=== PATIENT | male | born 1960 | race Caucasian/White ===

== ENCOUNTER 2018-04-29 08:34 | Emergency (ER) | payer MEDICARE, OTHER ==
[2018-04-29 08:42] VITALS: BP 168/82
--- NOTE | 2018-04-29 09:27 | ER Document Report ---
ED General - General Chief Complaint: Abdominal Swelling Stated Complaint: STOMACH SWELLING Time Seen by Provider: 04/29/18 08:48 - HPI Patient complains to provider of: Urostomy swelling Notes: Patient has a history of urostomy states due to prostate cancer both prostate and bladder were taken now has a urostomy. Patient states slight swelling or redness at the site. Patient does have a history of psoriasis that there is some psoriasis of the area. Patient denies any fever chills nausea vomiting diarrhea change in ostomy output. - Related Data Allergies/Adverse Reactions: Penicillins Allergy (Verified 04/29/18 08:42) Past Medical History - Social History Smoking Status: Unknown if Ever Smoked Family History: Reviewed & Not Pertinent Review of Systems - Review of Systems Constitutional: No symptoms reported EENT: No symptoms reported Cardiovascular: No symptoms reported Respiratory: No symptoms reported Gastrointestinal: No symptoms reported Genitourinary: Other - Urostomy complaint Male Genitourinary: No symptoms reported Musculoskeletal: No symptoms reported Skin: No symptoms reported Hematologic/Lymphatic: No symptoms reported Neurological/Psychological: No symptoms reported -: Yes All other systems reviewed and negative Physical Exam - Vital signs Vitals: Temp Pulse Resp BP Pulse Ox 98.3 F 108 H 18 168/82 H 95 04/29/18 08:40 04/29/18 08:40 04/29/18 08:40 04/29/18 08:40 04/29/18 08:40 Interpretation: Normal - General General appearance: Appears well, Alert - HEENT Head: Normocephalic, Atraumatic Eyes: Normal Pupils: PERRL - Respiratory Respiratory status: No respiratory distress Chest status: Nontender Breath sounds: Normal Chest palpation: Normal - Cardiovascular Rhythm: Regular Heart sounds: Normal auscultation Murmur: No - Abdominal Inspection: Normal Distension: No distension Bowel sounds: Normal Tenderness: Nontender Organomegaly: No organomegaly Notes: Urostomy in the right lower quadrant with patches of psoriasis around the bandage. There is tissue texture changes on the inferior portion of the urostomy home more likely consistent with a stoma herniation. No signs of any infection or worrisome pathology. - Back Back: Normal, Nontender - Extremities General upper extremity: Normal inspection, Nontender, Normal color, Normal ROM , Normal temperature General lower extremity: Normal inspection, Nontender, Normal color, Normal ROM , Normal temperature, Normal weight bearing. No: Marcello's sign - Neurological Neuro grossly intact: Yes Cognition: Normal Orientation: AAOx4 Lisa Coma Scale Eye Opening: Spontaneous Hamler Coma Scale Verbal: Oriented Lisa Coma Scale Motor: Obeys Commands Hamler Coma Scale Total: 15 Speech: Normal Motor strength normal: LUE, RUE, LLE, RLE Sensory: Normal - Psychological Associated symptoms: Normal affect, Normal mood - Skin Skin Temperature: Warm Skin Moisture: Dry Skin Color: Normal Course - Vital Signs Vital signs: Temp Pulse Resp BP Pulse Ox 98.3 F 108 H 18 168/82 H 95 04/29/18 08:40 04/29/18 08:40 04/29/18 08:40 04/29/18 08:40 04/29/18 08:40 Discharge - Discharge Clinical Impression: stoma evaluation, Normal abdominal exam, Psoriasis Disposition: HOME, SELF-CARE Additional Instructions: Evaluation of the stoma today does not reveal any signs of infection or other worrisome etiologies. There is a little small outbreak of psoriasis around the stoma site. There is a slight firmness to the base of the stoma site however this is more likely a hernia that is forming around the stoma. This can be normal. Would recommend he follow-up with your primary care physician at this time no need for antibiotics and the need for surgery no need for admission to the hospital. Continue activities as tolerated
== END 2018-04-29 09:30 | disposition home or self-care (01) ==
LOC: ER 08:34
DX: Z43.6 Encounter for attention to other artificial openings of urinary tract (principal); L40.9 Psoriasis, unspecified; R19.00 Intra-abdominal and pelvic swelling, mass and lump, unspecified site; Z85.51 Personal history of malignant neoplasm of bladder; Z85.46 Personal history of malignant neoplasm of prostate; Z88.0 Allergy status to penicillin
CPT/HCPCS: 99284

== ENCOUNTER 2018-05-23 08:43 | Emergency (ER) | payer MEDICARE, OTHER ==
[2018-05-23] MEDS ORDERED: ASPIRIN 81 MG TABLET, CHEWABLE PO ONE (09:07)
[2018-05-23 10:00] LABS: ABSOLUTE EOSINOPHILS # (AUTO) 0.1 10^3/uL (0.0-0.6); ABSOLUTE LYMPHOCYTES (AUTO) 0.8 10^3/uL (0.5-4.7); ABSOLUTE MONOCYTES (AUTO) 0.5 10^3/uL (0.1-1.4); ABSOLUTE NEUT (AUTO) 6.9 10^3/uL (1.7-8.2); BASOPHILS % (AUTO) 0.4 % (0-2); EOSINOPHILS % (AUTO) 0.7 % (0-6); HEMOGLOBIN 15.3 g/dL (13.5-17.0); MEAN CORPUSCULAR HEMOGLOBIN 30.5 pg (27.0-33.4); MEAN CORPUSCULAR VOLUME 90 fl (80-97); MONOCYTES % (AUTO) 5.8 % (3-13); PLATELET COUNT 171 10^3/uL (150-450); RED BLOOD COUNT 5.01 10^6/uL (4.35-5.55); RED CELL DISTRIBUTION WIDTH 14.9 % (11.5-14.0); SEGMENTED NEUTROPHILS % (AUTO) 83.1 % (42-78); TOTAL CELLS COUNTED % (AUTO) 100 %; WHITE BLOOD COUNT 8.3 10^3/uL (4.0-10.5)
--- NOTE | 2018-05-23 10:09 | RADIOLOGY REPORT (SQ) ---
EXAM DESCRIPTION: CHEST 2 VIEWS COMPLETED DATE/TIME: 05/23/2018 9:49 am REASON FOR STUDY: near syn COMPARISON: None. EXAM PARAMETERS: NUMBER OF VIEWS: two views TECHNIQUE: Digital Frontal and Lateral radiographic views of the chest acquired. RADIATION DOSE: NA LIMITATIONS: none FINDINGS: LUNGS AND PLEURA: No opacities, masses or pneumothorax. No pleural effusion. MEDIASTINUM AND HILAR STRUCTURES: No masses or contour abnormalities. HEART AND VASCULAR STRUCTURES: No cardiomegaly. Old sternotomy. BONES: No acute findings. HARDWARE: Left-sided pacemaker/defibrillator OTHER: No other significant finding. IMPRESSION: NO ACUTE RADIOGRAPHIC FINDING IN THE CHEST. TECHNICAL DOCUMENTATION: JOB ID: [id number] [employer]- All Rights Reserved Reading location - IP/workstation name: [email or web address]
[2018-05-23 10:23] LABS: ALANINE AMINOTRANSFERASE 22 U/L (21-72); ALBUMIN 4.8 g/dL (3.5-5.0); ALKALINE PHOSPHATASE 67 U/L (38-126); ANION GAP 17 (5-19); ASPARTATE AMINO TRANSFERASE 25 U/L (17-59); BILIRUBIN,DIRECT 0.3 mg/dL (0.0-0.4); BILIRUBIN,TOTAL 0.4 mg/dL (0.2-1.3); BLOOD UREA NITROGEN 20 mg/dL (7-20); CALCIUM 10.2 mg/dL (8.4-10.2); CARBON DIOXIDE 26 mmol/L (22-30); CHLORIDE 99 mmol/L (98-107); CREATINE KINASE 68 U/L (55-170); GLUCOSE 266 mg/dL (75-110); POTASSIUM 4.1 mmol/L (3.6-5.0); SODIUM 141.8 mmol/L (137-145); TOTAL PROTEIN 7.9 g/dL (6.3-8.2)
[2018-05-23 10:35] LABS: CREATINE KINASE MB 1.43 ng/mL (<4.55); TROPONIN I < 0.012 ng/mL
[2018-05-23] MEDS ORDERED: PROCHLORPERAZINE MALEATE 5 MG TABLET PO ONE (12:12)
[2018-05-23] MEDS ORDERED: KETOROLAC TROMETHAMINE INJ/PF 30 MG/1 ML SDV IV ONE (12:12)
[2018-05-23] MEDS ORDERED: ONDANSETRON 4 MG TAB.RAPDIS PO ONE (12:12)
[2018-05-23 13:01] VITALS: BP 165/78
--- NOTE | 2018-05-23 13:17 | ER Document Report ---
ED General - General Chief Complaint: Near Syncope Stated Complaint: DIZZINESS Time Seen by Provider: 05/23/18 09:04 TRAVEL OUTSIDE OF THE [place] IN LAST 30 DAYS: No - HPI Patient complains to provider of: Lightheaded dizziness Notes: Patient coming in for evaluation of lightheaded and dizziness. Patient states mostly occurs whenever he bends over. Patient states symptoms ongoing for greater than 48 hours. Patient states also has slight headache. Patient denies any history trauma denies any fevers chills nausea vomiting diarrhea. Denies any chest pain abdominal pain. Patient has a history of cirrhosis and a urostomy. Patient resting comfortably upon my evaluation states eating and drinking normally. - Related Data Allergies/Adverse Reactions: Penicillins Allergy (Verified 05/23/18 09:43) Past Medical History - Social History Smoking Status: Former Smoker Frequency of alcohol use: None Drug Abuse: None Family History: Reviewed & Not Pertinent Patient has suicidal ideation: No Patient has homicidal ideation: No - Past Medical History Cardiac Medical History: Reports: Hx Hypercholesterolemia, Hx Hypertension Pulmonary Medical History: Reports: Hx COPD Endocrine Medical History: Reports: Hx Diabetes Mellitus Type 2 Renal/ Medical History: Denies: Hx Peritoneal Dialysis Past Surgical History: Reports: Hx Cardiac Surgery - triple bypass, Hx Cholecystectomy, Hx Urinary Tract Surgery - bladder and prostate removal, urostomy Review of Systems - Review of Systems Constitutional: No symptoms reported EENT: No symptoms reported Cardiovascular: Lightheaded Respiratory: No symptoms reported Gastrointestinal: No symptoms reported Genitourinary: No symptoms reported Male Genitourinary: No symptoms reported Musculoskeletal: No symptoms reported Skin: No symptoms reported Hematologic/Lymphatic: No symptoms reported Neurological/Psychological: No symptoms reported -: Yes All other systems reviewed and negative Physical Exam - Vital signs Vitals: Temp Pulse Resp BP Pulse Ox 97.8 F 101 H 18 148/95 H 95 05/23/18 08:48 05/23/18 08:48 05/23/18 08:48 05/23/18 08:48 05/23/18 08:48 Interpretation: Normal - General General appearance: Appears well, Alert - HEENT Head: Normocephalic, Atraumatic Eyes: Normal Pupils: PERRL - Respiratory Respiratory status: No respiratory distress Chest status: Nontender Breath sounds: Normal Chest palpation: Normal - Cardiovascular Rhythm: Regular Heart sounds: Normal auscultation Murmur: No - Abdominal Inspection: Normal Distension: No distension Bowel sounds: Normal Tenderness: Nontender Organomegaly: No organomegaly Notes: Urostomy right lower quadrant - Back Back: Normal, Nontender - Extremities General upper extremity: Normal inspection, Nontender, Normal color, Normal ROM , Normal temperature General lower extremity: Normal inspection, Nontender, Normal color, Normal ROM , Normal temperature, Normal weight bearing. No: Marcello's sign - Neurological Neuro grossly intact: Yes Cognition: Normal Orientation: AAOx4 Humble Coma Scale Eye Opening: Spontaneous Humble Coma Scale Verbal: Oriented Humble Coma Scale Motor: Obeys Commands Lisa Coma Scale Total: 15 Speech: Normal Motor strength normal: LUE, RUE, LLE, RLE Sensory: Normal - Psychological Associated symptoms: Normal affect, Normal mood - Skin Skin Temperature: Warm Skin Moisture: Dry Skin Color: Normal Notes: Patches of psoriasis throughout the torso Course - Re-evaluation Re-evalutation: 05/23/18 15:15 Orthostatics slightly positive for reproduction of the symptoms. Patient otherwise has no acute abnormalities on his laboratory findings of his be suggestive of significant pathology causing his lightheadedness or dizziness. Extremities skin intact moving all 4 extremities. The recommended patient try compression stockings as they is slightly orthostatic increase his oral intake and follow-up with his primary care physician. Patient's headache is nondescript slightly improved with Compazine Zofran. Will send patient home with Compazine and Zofran. 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 The patient is neurologically intact. Given the extremely low risk of these diagnoses further testing and evaluation for these possibilities does not appear to be indicated at this time. The patient has been instructed to return if the symptoms worsen or change in any way.. - Vital Signs Vital signs: Temp Pulse Resp BP Pulse Ox 97.8 F 73 22 H 165/78 H 96 05/23/18 08:48 05/23/18 10:07 05/23/18 12:25 05/23/18 12:25 05/23/18 12:25 - Laboratory Result Diagrams: 05/23/18 09:32 05/23/18 09:32 Laboratory results interpreted by me: 05/23/18 05/23/18 09:32 09:32 RDW 14.9 H Seg Neutrophils % 83.1 H Lymphocytes % 10.0 L Glucose 266 H Discharge - Discharge Clinical Impression: Light-headed feeling Headache Qualifiers: Headache type: unspecified Headache chronicity pattern: unspecified pattern Intractability: not intractable Qualified Code(s): R51 - Headache Condition: Good Disposition: HOME, SELF-CARE Instructions: Dehydration ([facility]), Near Syncopal Episode ([facility]), Orthostatic Hypotension ([facility]) Additional Instructions: Does not show any signs of electrolyte abnormality cardiac ischemia cardiac damage infection requiring antibiotics is no surgical pathology for your symptoms today. I do believe your lightheadedness more likely due to decreased blood flow to the heart would recommend trying the compression stockings that we gave you here in the ER. Also recommend for your headaches take Tylenol and Motrin 600 mg of Motrin along with 650 mg of Tylenol for headache. He may also try the Compazine Zofran combination for your headache return to ER symptoms worsen. Prescriptions: Compression Socks, Medium [Futuro Restoring] 1 each MC DAILY #1 each Ondansetron HCl [Zofran 4 mg Tablet] 1 - 2 tab PO Q6 #30 tablet Prochlorperazine Maleate [Compazine] 5 mg PO Q6 #30 tablet Forms: Return to Work
--- NOTE | 2018-05-23 22:01 | EKG REPORT ---
SEVERITY:- ABNORMAL ECG - SINUS RHYTHM PROBABLE INFERIOR INFARCT, AGE INDETERMINATE LATERAL LEADS ARE ALSO INVOLVED : Confirmed by: Russell Morel 23-May-2018 22:00:58
== END 2018-05-23 13:14 | disposition home or self-care (01) ==
LOC: ER 08:43
DX: R42 Dizziness and giddiness (principal); R51 Headache; L40.9 Psoriasis, unspecified; I10 Essential (primary) hypertension; J44.9 Chronic obstructive pulmonary disease, unspecified; E11.9 Type 2 diabetes mellitus without complications; Z87.891 Personal history of nicotine dependence; Z88.0 Allergy status to penicillin; Z95.1 Presence of aortocoronary bypass graft
CPT/HCPCS: 93005; 99284; 96374; 36415; 82553; 82550; 85025; 80053; 84484; 71046; 93010; A9270 ×3; J1885; S0119; S0183

== ENCOUNTER 2018-06-07 14:35 | Observation (INO) | payer MEDICARE, OTHER ==
--- NOTE | 2018-06-07 15:12 | ER Document Report ---
ED General - General Chief Complaint: Syncope Stated Complaint: POSSIBLE SYNCOPE Time Seen by Provider: 06/07/18 14:50 Mode of Arrival: Medic Information source: Patient Notes: This is a 58-year-old man brought in by EMS after a witnessed on her altered syncopal event at home while he was in the kitchen. Patient denies any head injury or pain. He does not remember the event. The patient's son was at the scene and patient's stated that the loss of consciousness was approximately 10-15 seconds. She does have a history of bladder cancer (status post bladder resection/prostatectomy with ostomy) status post last chemo March 2017 (in [place]). States he was given a clean bill of [place] and March 2017 right before he relocated down here. He does have a history of coronary artery disease with a CABG in 2014 and does have a defibrillator. He also has non- insulin-requiring diabetes. Currently he denies any pain. Review of systems is positive for frequent dizziness, headache and nausea with retching on and off for the past month. Review of systems: Patient denies exertional chest pain. She denies any blood in the stool or black stools. TRAVEL OUTSIDE OF THE [place] IN LAST 30 DAYS: No - HPI Onset: Just prior to arrival Onset/Duration: Sudden Quality of pain: No pain Severity: None Pain Level: Denies Associated symptoms: Nausea - Dizziness, Weakness, Other Exacerbated by: Denies Relieved by: Denies Similar symptoms previously: Yes Recently seen / treated by doctor: Yes - Related Data Allergies/Adverse Reactions: Penicillins Allergy (Verified 06/07/18 15:02) Past Medical History - General Information source: Patient - Social History Smoking Status: Former Smoker Cigarette use (# per day): No Chew tobacco use (# tins/day): No Frequency of alcohol use: None Drug Abuse: None Lives with: Family Family History: Reviewed & Not Pertinent Patient has suicidal ideation: No Patient has homicidal ideation: No - Past Medical History Cardiac Medical History: Reports: Hx Hypercholesterolemia, Hx Hypertension Pulmonary Medical History: Reports: Hx COPD Endocrine Medical History: Reports: Hx Diabetes Mellitus Type 2 Renal/ Medical History: Denies: Hx Peritoneal Dialysis Past Surgical History: Reports: Hx Cardiac Surgery - triple bypass, Hx Cholecystectomy, Hx Urinary Tract Surgery - bladder and prostate removal, urostomy Review of Systems - Review of Systems Constitutional: denies: Chills, Fever EENT: No symptoms reported Cardiovascular: See HPI Respiratory: denies: Cough, Hemoptysis, Short of breath Gastrointestinal: Nausea. denies: Vomiting Genitourinary: No symptoms reported Male Genitourinary: No symptoms reported Musculoskeletal: No symptoms reported Skin: No symptoms reported Hematologic/Lymphatic: No symptoms reported Neurological/Psychological: Weakness. denies: Loss of power Physical Exam - Vital signs Vitals: Temp Pulse Resp BP Pulse Ox 97.8 F 75 18 151/90 H 99 06/07/18 14:35 06/07/18 14:35 06/07/18 14:35 06/07/18 14:35 06/07/18 14:35 Notes: Physical exam: GENERAL: [id number] man, alert and oriented 3, answering questions appropriately. HEAD: Atraumatic, normocephalic. EYES: Pupils equal round and reactive to light, extraocular movements intact, sclera anicteric, conjunctiva are normal. ENT: TMs normal, nares patent, oropharynx clear without exudates. Moist mucous membranes. NECK: Normal range of motion, supple without obvious mass or JVD. LUNGS: Breath sounds clear to auscultation bilaterally and equal. No wheezes rales or rhonchi. HEART: Regular rate and rhythm without murmurs, rubs or gallops. ABDOMEN: Soft, normoactive bowel sounds. No tenderness to palpation. No guarding, no rebound. Ostomy. EXTREMITIES: Normal range of motion, no pitting or edema. No clubbing or cyanosis. NEUROLOGICAL: Cranial nerves II through XII grossly intact. Normal speech, moving all extremities. PSYCH: Normal mood, normal affect. SKIN: Warm, Dry, normal turgor, no rashes or lesions noted. Course - Re-evaluation Re-evalutation: 06/07/18 17:22 Defibrillator was interrogated: No evidence of V. fib/V. tach - Vital Signs Vital signs: Temp Pulse Resp BP Pulse Ox 97.8 F 75 18 153/89 H 100 06/07/18 14:35 06/07/18 14:35 06/07/18 17:00 06/07/18 15:01 06/07/18 17:00 - Laboratory Result Diagrams: 06/07/18 14:50 06/07/18 14:50 Laboratory results interpreted by me: 06/07/18 06/07/18 14:50 14:50 RDW 15.1 H BUN 26 H Glucose 111 H - Diagnostic Test Radiology reviewed: Image reviewed, Reports reviewed - CT of the head shows no acute bleed or obvious infarct. X-ray shows no infiltrates. - EKG Interpretation by Me Rate: Normal Rhythm: NSR - EKG shows normal sinus rhythm with a ventricular rate of 75, no acute ST-T wave changes Discharge - Discharge Clinical Impression: Syncope Condition: Stable Disposition: ADMITTED OBSERVATION Admitting Provider: Hospitalist Tyler Lagunas Unit Admitted: Telemetry
[2018-06-07] MEDS ORDERED: ONDANSETRON HCL INJ/PF 4 MG/2 ML SDV IV ONE (15:35)
[2018-06-07 15:50] LABS: ABSOLUTE EOSINOPHILS # (AUTO) 0.1 10^3/uL (0.0-0.6); ABSOLUTE LYMPHOCYTES (AUTO) 1.4 10^3/uL (0.5-4.7); ABSOLUTE MONOCYTES (AUTO) 0.8 10^3/uL (0.1-1.4); ABSOLUTE NEUT (AUTO) 5.9 10^3/uL (1.7-8.2); BASOPHILS % (AUTO) 0.4 % (0-2); EOSINOPHILS % (AUTO) 1.4 % (0-6); HEMATOCRIT 42.5 % (37.9-51.0); HEMOGLOBIN 14.4 g/dL (13.5-17.0); LYMPHOCYTES % (AUTO) 16.9 % (13-45); MEAN CORPUSCULAR HEMOGLOBIN 30.5 pg (27.0-33.4); MEAN CORPUSCULAR VOLUME 90 fl (80-97); PLATELET COUNT 183 10^3/uL (150-450); RED BLOOD COUNT 4.73 10^6/uL (4.35-5.55); RED CELL DISTRIBUTION WIDTH 15.1 % (11.5-14.0); SEGMENTED NEUTROPHILS % (AUTO) 71.3 % (42-78); TOTAL CELLS COUNTED % (AUTO) 100 %; WHITE BLOOD COUNT 8.3 10^3/uL (4.0-10.5)
[2018-06-07 16:02] LABS: ALANINE AMINOTRANSFERASE 23 U/L (21-72); ALBUMIN 4.2 g/dL (3.5-5.0); ALKALINE PHOSPHATASE 71 U/L (38-126); ANION GAP 17 (5-19); ASPARTATE AMINO TRANSFERASE 29 U/L (17-59); BILIRUBIN,DIRECT 0.3 mg/dL (0.0-0.4); BILIRUBIN,TOTAL 0.4 mg/dL (0.2-1.3); BLOOD UREA NITROGEN 26 mg/dL (7-20); CALCIUM 10.2 mg/dL (8.4-10.2); CARBON DIOXIDE 22 mmol/L (22-30); CHLORIDE 99 mmol/L (98-107); CREATINE KINASE 148 U/L (55-170); GLUCOSE 111 mg/dL (75-110); POTASSIUM 4.4 mmol/L (3.6-5.0); SODIUM 137.7 mmol/L (137-145); TOTAL PROTEIN 7.3 g/dL (6.3-8.2)
--- NOTE | 2018-06-07 16:02 | RADIOLOGY REPORT (SQ) ---
EXAM DESCRIPTION: CT HEAD WITHOUT COMPLETED DATE/TIME: 06/07/2018 3:27 pm REASON FOR STUDY: mujica, syncope, h/o bladder cancer COMPARISON: None. TECHNIQUE: Axial images acquired through the brain without intravenous contrast. Images reviewed wi th bone, brain and subdural windows. Images stored on PACS. All CT scanners at this facility use dose modulation, iterative reconstruction, and/or weight based d osing when appropriate to reduce radiation dose to as low as reasonably achievable (ALARA). [facility]: Dose Right [facility]: CareDose [facility]: Dose Right [facility]: Teradose 4D [facility]: Smart Conferize RADIATION DOSE: CT Rad equipment meets quality standard of care and radiation dose reduction techniq ues were employed. CTDIvol: 53.2 mGy. DLP: 1044 mGy-cm. mGy. LIMITATIONS: None. FINDINGS: VENTRICLES: Normal size and contour. CEREBRUM: No hemorrhage. No midline shift. No evidence for acute infarction. Minimal chronic white matter change. . CEREBELLUM: No masses. No hemorrhage. No alteration of density. No evidence for acute infarction. EXTRAAXIAL SPACES: No fluid collections. No masses. ORBITS AND GLOBE: No intra- or extraconal masses. Normal contour of globe without masses. CALVARIUM: No fracture. PARANASAL SINUSES: No fluid or mucosal thickening. Nasal septal deviation to the right. SOFT TISSUES: No mass or hematoma. OTHER: No other significant finding. IMPRESSION: Minimal chronic white matter change. Otherwise, noncontrast CT head. EVIDENCE OF ACUTE STROKE: NO. COMMENT: Quality ID # [id number]: Final reports with documentation of one or more dose reduction techniques (e.g., Automated exposure control, adjustment of the mA and/or kV according to patient size, use of iterative reconstruction technique) TECHNICAL DOCUMENTATION: JOB ID: [id number]- All Rights Reserved Reading location - IP/workstation name: [email or web address]
--- NOTE | 2018-06-07 16:05 | RADIOLOGY REPORT (SQ) ---
EXAM DESCRIPTION: CHEST SINGLE VIEW COMPLETED DATE/TIME: 06/07/2018 3:38 pm REASON FOR STUDY: syncope COMPARISON: 05/23/2018. EXAM PARAMETERS: NUMBER OF VIEWS: One view. TECHNIQUE: Single frontal radiographic view of the chest acquired. RADIATION DOSE: NA LIMITATIONS: None. FINDINGS: LUNGS AND PLEURA: No acute infiltrates or effusions. MEDIASTINUM AND HILAR STRUCTURES: No masses. Contour normal. HEART AND VASCULAR STRUCTURES: Heart normal in size. Normal vasculature. BONES: No acute findings. HARDWARE: Pacer defibrillator in place there OTHER: Median sternotomy wires and marker clips from previous CABG. IMPRESSION: NO SIGNIFICANT INTERVAL CHANGE. TECHNICAL DOCUMENTATION: JOB ID: [id number] [employer]- All Rights Reserved Reading location - IP/workstation name: [email or web address]
[2018-06-07 16:14] LABS: CREATINE KINASE MB 3.04 ng/mL (<4.55)
[2018-06-07 16:15] LABS: TROPONIN I < 0.012 ng/mL
[2018-06-07] MEDS: NORMAL SALINE 1000 ML 1,000 ML IV PRN ×4 (16:40→23:26)
[2018-06-07] MEDS ORDERED: ACETAMINOPHEN 325 MG TABLET PO PRN (17:32)
[2018-06-07] MEDS ORDERED: ONDANSETRON HCL INJ/PF 4 MG/2 ML SDV IV PRN (17:32)
[2018-06-07] MEDS ORDERED: IPRATROPIUM/ALBUTEROL 0.5-2.5 MG/3 ML AMPUL NEB PRN (18:07)
[2018-06-07] MEDS ORDERED: INSULIN LISPRO 100 UNIT/ML 3 ML VIAL SUBCUT PRN (18:10)
[2018-06-07] MEDS ORDERED: DEXTROSE 40% GEL 15 GM TUBE PO PRN ×2 (18:10)
[2018-06-07] MEDS ORDERED: GLUCAGON,HUMAN RECOMB 1 MG INJ IM PRN (18:10)
[2018-06-07] MEDS ORDERED: DEXTROSE 50%-WATER 25 GM/50 ML DISP.SYRIN IV PRN ×2 (18:10)
--- NOTE | 2018-06-07 18:15 | PDOC H&P ---
History of Present Illness Admission Date/PCP: 06/07/18 17:00 no PCP Patient complains of: syncope History of Present Illness: ISAIAH CARDONA is a 58 year old male with a past medical history of hypertension, coronary artery disease status post bypass 3 with implanted defibrillator, hyperlipidemia, bladder cancer status post removal with urostomy bag, GERD and COPD, who presented to the ED complaining of a syncope around 1 PM this afternoon. Patient states that he has been feeling dizziness for about a month now and this afternoon he was in the kitchen making some food when he felt a little lightheaded and then he collapsed onto the floor. Patient stated his son was in the house and heard him fall and came running and found him on the floor. He had head a small table in the kitchen and collapsed on the floor. He currently has no pain except for left arm he has a bruising near the tricep. Patient states that he did not lose control of his bowels. He has a urostomy bag so he cannot tell me about losing control of his urine. His son did not mention anything about shaking of the arms or legs such as a seizure. His son unfortunately not at bedside. His is. He tells me that he came right back to consciousness and feels himself right now. He does admit to feeling nausea/vomiting for over a month. States he has been eating well and has lost more than 20 pounds in the last 6-8 weeks. tells me that he has been having some tremors of his hands bilaterally mostly with intention. States that he has gone to the doctor the #29. Of note he was at urgent care on 06/05 because he was not feeling so well and having nausea vomiting and headache-he tested his urine and thought it was infected so they started him on Levaquin. Today he had his third dose of Levaquin. Unfortunately due to his urostomy but he is unable to tell me any symptoms of urinary infection such as dysuria or urgency/frequency. Patient tell me that he has been to the ER in the last month and a half complaining of similar symptoms and did not find anything wrong with him. He tells me that his defibrillator was implanted due to history of A. fib in the past. He denies any recent travel outside the country, changes in diet except as mentioned above, and no new changes in medications except the Levaquin that was started 3 days ago. Past Medical History Cardiac Medical History: Reports: Hyperlipidema, Hypertension Pulmonary Medical History: Reports: Chronic Obstructive Pulmonary Disease (COPD) Endocrine Medical History: Reports: Diabetes Mellitus Type 2 Past Surgical History Past Surgical History: Reports: Cholecystectomy Social History Lives with: Family Smoking Status: Former Smoker Family History Family History: Reviewed & Not Pertinent Parental Family History Reviewed: Yes Children Family History Reviewed: Unknown Sibling(s) Family History Reviewed.: Unknown Medication/Allergy Home Medications: Compression Socks, Medium [Futuro Restoring] 1 each MC DAILY #1 each 05/23/18 Ondansetron HCl [Zofran 4 mg Tablet] 1 - 2 tab PO Q6 #30 tablet 05/23/18 Prochlorperazine Maleate [Compazine] 5 mg PO Q6 #30 tablet 05/23/18 Allergies/Adverse Reactions: Penicillins Allergy (Verified 06/07/18 15:02) Review of Systems All systems: reviewed and no additional remarkable complaints except as stated Constitutional: PRESENT: weight loss. ABSENT: chills, fever(s) Eyes: ABSENT: visual disturbances Cardiovascular: ABSENT: chest pain, dyspnea on exertion, edema Respiratory: ABSENT: cough Gastrointestinal: PRESENT: heartburn, nausea, vomiting. ABSENT: abdominal pain , coffee ground emesis, diarrhea Neurological: PRESENT: dizziness, syncope, tremor(s) - Bilateral hands. ABSENT : abnormal gait, abnormal speech, confusion, frequent falls - This is the first time he fell, numbness, weakness Hematologic/Lymphatic: ABSENT: easy bruising, lymphadenopathy Physical Exam Vital Signs: Temp Pulse Resp BP Pulse Ox 97.8 F 75 18 153/89 H 100 06/07/18 14:35 06/07/18 14:35 06/07/18 17:00 06/07/18 15:01 06/07/18 17:00 General appearance: PRESENT: no acute distress, obese Head exam: PRESENT: atraumatic, normocephalic Eye exam: PRESENT: EOMI, PERRLA. ABSENT: scleral icterus Ear exam: PRESENT: normal external ear exam Mouth exam: PRESENT: moist, neck supple Neck exam: ABSENT: tracheal deviation Respiratory exam: PRESENT: clear to auscultation lashell, decreased breath sounds - Slightly decreased breath sounds bilaterally at the bases with no expiratory wheezes appreciated, symmetrical. ABSENT: wheezes Cardiovascular exam: PRESENT: +S1, +S2, other - Left chest wall defibrillator noted Pulses: PRESENT: +2 pedal pulses bilateral Vascular exam: PRESENT: normal capillary refill GI/Abdominal exam: PRESENT: normal bowel sounds, soft, other - Urostomy bag with urine noted. ABSENT: tenderness Extremities exam: ABSENT: +2 edema Neurological exam: PRESENT: alert - CN 2-12 intact except a ?slight droop of the left side of the mouth, awake, oriented to person, oriented to place, oriented to time, oriented to situation, reflexes normal, motor sensory deficit , other - finger to nose - some tremors but able to perform, Heel to leija normal Skin exam: PRESENT: other - psoriaris noted on arms and legs Results Laboratory Results: Personally reviewed lab results EKG Comments: Personally reviewed EKG Impressions: Head CT 06/07/18 15:07 IMPRESSION: Minimal chronic white matter change. Otherwise, noncontrast CT head. EVIDENCE OF ACUTE STROKE: NO. Chest X-Ray 06/07/18 15:08 IMPRESSION: NO SIGNIFICANT INTERVAL CHANGE. Status: Image reviewed by me - Personally reviewed imaging of chest x-ray Assessment & Plan - Diagnosis (1) Syncope and collapse Is this a current diagnosis for this admission?: Yes Plan: Unclear as to the cause of his syncope. Vasovagal versus orthostatic hypotension versus TIA versus stroke versus cardiac in origin. ED had consulted his defibrillator company and they had sent a report showing that there were no changes in his rhythm which would cause his syncope. We will work him up for syncope/TIA. We will start him on some IV fluids -Ordered echo, carotid duplex, lipid panel, A1c, PT/OT, troponins 3, speech/ swallow therapy, bedside swallow eval., neurochecks, frequent vital signs, fall precautions -Unfortunately our MRI will not do his exam due to implanted defibrillator. (2) Hypertension Qualifiers: Hypertension type: essential hypertension Qualified Code(s): I10 - Essential (primary) hypertension Is this a current diagnosis for this admission?: Yes Plan: Stable, will continue with home medications. (3) GERD (gastroesophageal reflux disease) Qualifiers: Esophagitis presence: without esophagitis Qualified Code(s): K21.9 - Gastro -esophageal reflux disease without esophagitis Is this a current diagnosis for this admission?: Yes Plan: Stable, continue his home medications. (4) History of bladder cancer Is this a current diagnosis for this admission?: Yes Plan: Has urostomy bag. Continue current care. (5) Dizziness Is this a current diagnosis for this admission?: Yes (6) Nausea and vomiting Qualifiers: Vomiting Intractability: non-intractable Is this a current diagnosis for this admission?: Yes Plan: Nausea and vomiting. Unclear etiology. States he has been having it for more than 6 weeks now. Zofran as needed. He needs to follow-up with his primary care doctor and may be a GI referral for further evaluation. (7) Diabetes mellitus type 2 in obese Is this a current diagnosis for this admission?: Yes Plan: States his most recent A1c was less than 7. Currently only on metformin. Likely will hold metformin and continue with Accu-Cheks and sliding scale insulin. (8) COPD (chronic obstructive pulmonary disease) Qualifiers: Chronic bronchitis type: simple Is this a current diagnosis for this admission?: Yes Plan: not on any meds at home. will order duoneb prn - Time Time Spent: 50 to 70 Minutes Anticipated discharge: Home Within: within 48 hours - Inpatient Certification Medical Necessity: Need For Continuous Telemetry Monitoring, Need for Neurological Checks, Other - Syncope
[2018-06-07] MEDS: FAMOTIDINE 20 MG TABLET PO SCH (22:17)
[2018-06-07] MEDS: HEPARIN SOD (PORCINE) 5,000 UNIT/ML 1 ML SYRINGE SUBCUT SCH (22:17)
[2018-06-08] MEDS: HEPARIN SOD (PORCINE) 5,000 UNIT/ML 1 ML SYRINGE SUBCUT SCH ×2 (05:40→14:53)
[2018-06-08 06:01] LABS: HEMATOCRIT 41.1 % (37.9-51.0); HEMOGLOBIN 14.1 g/dL (13.5-17.0); MEAN CORPUSCULAR HEMOGLOBIN 30.5 pg (27.0-33.4); MEAN CORPUSCULAR HGB CONC 34.2 g/dL (32.0-36.0); MEAN CORPUSCULAR VOLUME 89 fl (80-97); PLATELET COUNT 165 10^3/uL (150-450); RED BLOOD COUNT 4.61 10^6/uL (4.35-5.55); RED CELL DISTRIBUTION WIDTH 14.8 % (11.5-14.0); WHITE BLOOD COUNT 8.1 10^3/uL (4.0-10.5)
[2018-06-08 06:30] LABS: ANION GAP 12 (5-19); BLOOD UREA NITROGEN 20 mg/dL (7-20); CALCIUM 9.8 mg/dL (8.4-10.2); CARBON DIOXIDE 24 mmol/L (22-30); CHLORIDE 100 mmol/L (98-107); GLUCOSE 103 mg/dL (75-110); POTASSIUM 3.9 mmol/L (3.6-5.0); SODIUM 136.4 mmol/L (137-145); TRIGLYCERIDES 214 mg/dL (<150)
[2018-06-08 06:37] LABS: VLDL CHOLESTEROL 42.8 mg/dL (10-31)
[2018-06-08 06:40] LABS: DIRECT LDL 85 mg/dL (<100)
[2018-06-08] MEDS: FAMOTIDINE 20 MG TABLET PO SCH (09:47)
--- NOTE | 2018-06-08 09:51 | EKG REPORT ---
SEVERITY:- OTHERWISE NORMAL ECG - SINUS RHYTHM VENTRICULAR PREMATURE COMPLEX : Confirmed by: Russell Morel 08-Jun-2018 09:51:00
--- NOTE | 2018-06-08 09:51 | EKG REPORT ---
SEVERITY:- ABNORMAL ECG - SINUS RHYTHM PROBABLE LEFT VENTRICULAR HYPERTROPHY PROBABLE INFERIOR INFARCT, AGE INDETERMINATE : Confirmed by: Russell Morel 08-Jun-2018 09:51:13
--- NOTE | 2018-06-08 13:48 | RADIOLOGY REPORT (SQ) ---
EXAM DESCRIPTION: CAROTID DOPPLER COMPLETED DATE/TIME: 06/08/2018 1:12 pm REASON FOR STUDY: syncope/TIA R55 SYNCOPE AND COLLAPSE COMPARISON: None. TECHNIQUE: Grayscale ultrasound, Doppler velocity and spectra, and color Doppler images acquired of the extra-cranial carotid and vertebral arteries. Images stored on PACS. LIMITATIONS: None. FINDINGS: RIGHT CAROTID CCA Velocities: Within normal limits. ICA Velocities Peak systolic 0.38 m/s. End diastolic 0.15 m/s. Proximal ICA/CCA peak systolic ratio 1.4. Spectra normal. Mild calcific plaque is present at the right carotid bifurcation without flow signif icant stenosis by velocity criteria. LEFT CAROTID CCA Velocities: Within normal limits. ICA Velocities Peak systolic 0.42 m/s. End diastolic 0.17 m/s. Proximal ICA/CCA peak systolic ratio 1.1. Spectra normal. No significant plaque. VERTEBRAL ARTERIES: Antegrade flow. Normal waveforms. SUBCLAVIAN ARTERIES: Not evaluated OTHER: No other significant finding. IMPRESSION: NO HEMODYNAMICALLY SIGNIFICANT STENOSIS. COMMENT: Quality ID #[id number]: Velocity criteria are extrapolated from the diameter data as defined by t he Society of Radiologists in Ultrasound Consensus Conference. Radiology 2003: 229; 340-346. TECHNICAL DOCUMENTATION: JOB ID: [id number] [employer]- All Rights Reserved Reading location - IP/workstation name: [email or web address]
--- NOTE | 2018-06-08 14:07 | XCELERA REPORT ---
[address] [address] Transthoracic Echocardiogram Report Name: ISAIAH CARDONA Age: 58 yrs Gender: Male : 1960 Patient Status: Inpatient Patient Location: [address] [place] [address] Study Date: 06/08/2018 10:42 AM Height: 74 in Weight: 239 lb BSA: 2.3 m2 Procedure: A two-dimensional transthoracic echocardiogram with color flow Doppler was performed. Study Quality: Technically suboptimal. Images were not obtained from all of the standard acoustic windows due to the limited scope of the study. No subcostal views. Reason For Study: syncope/TIA History: syncope/TIA. Ordering Physician: ABBEY URIARTE Performed By: Rocky Ortega Interpretation Summary There is no obvious cardiac source of embolus noted on this transthoracic echocardiogram. Follow-up with a JB is suggested if cardiac source is still suspected. The left ventricle is normal in size. There is normal left ventricular wall thickness. LV EF is 55% Left ventricular systolic function is low normal. The left ventricular wall motion is normal. There is no thrombus. The right ventricle is not well visualized secondary to technical limitations The right atrium is normal. The left atrium is mildly dilated. There is no evidence of mitral valve prolapse. There is no mitral valve stenosis. There is a trace amount of mitral regurgitation There is no aortic valve stenosis There is no LVOT obstruction. No aortic regurgitation is present. There is a trace amount of tricuspid regurgitation Right ventricular systolic pressure is normal. RVSP is 24 to 29 mm of Hg , with RA mean of 5 to 10. There is no pulmonic valvular stenosis. There is no pulmonic valvular regurgitation. There is no pericardial effusion. There is no obvious cardiac source of embolus noted on this transthoracic echocardiogram. Follow-up with a JB is suggested if cardiac source is still suspected MMode/2D Measurements & Calculations RVDd: 3.6 cm LVIDd: 5.5 cm FS: 21.6 % Ao root diam: 3.4 cm IVSd: 1.0 cm LVIDs: 4.3 cm EDV(Teich): 145.2 ml LVPWd: 0.74 cmESV(Teich): 82.4 ml Ao root area: 9.0 cm2 EF(Teich): 43.3 % LA dimension: 4.3 cm LVOT diam: 2.2 cm LVOT area: 3.7 cm2 Doppler Measurements & Calculations MV E max daphne: MV P1/2t max daphne: Ao V2 max: LV V1 max P.2 cm/sec 118.0 cm/sec 133.8 cm/sec 3.5 mmHg MV P1/2t: 46.6 msec Ao max PG: LV V1 max: MVA(P1/2t): 4.7 cm2 7.2 mmHg 93.3 cm/sec MV dec slope: DELMA(V,D): 2.6 cm2 741.0 cm/sec2 MV dec time: 0.11 sec PA V2 max: TR max daphne: 89.8 cm/sec 217.2 cm/sec PA max P.2 mmHgTR max P.9 mmHg Left Ventricle The left ventricle is normal in size. There is normal left ventricular wall thickness. LV EF is 55%. Left ventricular systolic function is low normal. Doppler measurements suggest impaired left ventricular relaxation, which is associated with grade I/IV or mild diastolic dysfunction. The left ventricular wall motion is normal. There is no thrombus. Right Ventricle The right ventricle is not well visualized secondary to technical limitations. Atria The right atrium is normal. The left atrium is mildly dilated. Mitral Valve There is mild mitral annular calcification. There is no evidence of mitral valve prolapse. There is no vegetation seen on the mitral valve. There is no mitral valve stenosis. There is a trace amount of mitral regurgitation. Aortic Valve There is no aortic valvular vegetation. There is no aortic valve stenosis. There is no LVOT obstruction. No aortic regurgitation is present. Tricuspid Valve There is no tricuspid stenosis. There is a trace amount of tricuspid regurgitation. Right ventricular systolic pressure is normal. RVSP is 24 to 29 mm of Hg , with RA mean of 5 to 10. Pulmonic Valve There is no pulmonic valvular stenosis. There is no pulmonic valvular regurgitation. Great Vessels The aortic root is not well visualized but is probably normal size. Effusions There is no pericardial effusion. : ABBEY URIARTE > Tracie Garcia
--- NOTE | 2018-06-08 14:46 | PDOC DISCHARGE SUMMARY ---
General - Admit/Disc Date/PCP Admission Date/Primary Care Provider: 06/07/18 17:00 Discharge Date: 06/08/18 - seen on rounds this morning - Discharge Diagnosis (1) Syncope and collapse Is this a current diagnosis for this admission?: Yes (2) Hypertension Is this a current diagnosis for this admission?: Yes (3) GERD (gastroesophageal reflux disease) Is this a current diagnosis for this admission?: Yes (4) History of bladder cancer Is this a current diagnosis for this admission?: Yes (5) Dizziness Is this a current diagnosis for this admission?: Yes (6) Nausea and vomiting Is this a current diagnosis for this admission?: Yes (7) Diabetes mellitus type 2 in obese Is this a current diagnosis for this admission?: Yes (8) COPD (chronic obstructive pulmonary disease) Is this a current diagnosis for this admission?: Yes - Additional Information Resuscitation Status: Full Code Discharge Diet: As Tolerated Discharge Activity: Activity As Tolerated, No Driving Home Medications: Aspirin [Ecotrin 81 mg EC Tablet] 81 mg PO DAILY 06/08/18 Atorvastatin Calcium [Lipitor 40 mg Tablet] 40 mg PO QHS 06/08/18 Lisinopril [Prinivil 5 mg Tablet] 5 mg PO DAILY 06/08/18 Metformin HCl [Glucophage 500 mg Tablet] 500 mg PO BIDBS 06/08/18 Metoprolol Tartrate [Lopressor 25 mg Tablet] 25 mg PO Q12 06/08/18 Multivitamin [Tab-A-Carter (Multiple Vitamin) Tablet] 1 tab PO DAILY 06/08/18 Pantoprazole Sodium [Protonix] 40 mg PO DAILY 06/08/18 History of Present Illness History of Present Illness: ISAIAH CARDONA is a 58 year old male with a past medical history of hypertension, coronary artery disease status post bypass 3 with implanted defibrillator, hyperlipidemia, bladder cancer status post removal with urostomy bag, GERD and COPD, who presented to the ED complaining of a syncope around 1 PM this afternoon. Patient states that he has been feeling dizziness for about a month now and this afternoon he was in the kitchen making some food when he felt a little lightheaded and then he collapsed onto the floor. Patient stated his son was in the house and heard him fall and came running and found him on the floor. He had head a small table in the kitchen and collapsed on the floor. He currently has no pain except for left arm he has a bruising near the tricep. Patient states that he did not lose control of his bowels. He has a urostomy bag so he cannot tell me about losing control of his urine. His son did not mention anything about shaking of the arms or legs such as a seizure. His son unfortunately not at bedside. His is. He tells me that he came right back to consciousness and feels himself right now. He does admit to feeling nausea/vomiting for over a month. States he has been eating well and has lost more than 20 pounds in the last 6-8 weeks. tells me that he has been having some tremors of his hands bilaterally mostly with intention. States that he has gone to the doctor the #29. Of note he was at urgent care on 06/05 because he was not feeling so well and having nausea vomiting and headache-he tested his urine and thought it was infected so they started him on Levaquin. Today he had his third dose of Levaquin. Unfortunately due to his urostomy but he is unable to tell me any symptoms of urinary infection such as dysuria or urgency/frequency. Patient tell me that he has been to the ER in the last month and a half complaining of similar symptoms and did not find anything wrong with him. He tells me that his defibrillator was implanted due to history of A. fib in the past. He denies any recent travel outside the country, changes in diet except as mentioned above, and no new changes in medications except the Levaquin that was started 3 days ago. Hospital Course Hospital Course: since admission he has remained stable. MRI brain ordered for suspected TIA/ stroke but due to his defibrillator it was not done. U/S carotid and ECHO done and no acute gross findings. EF >55%. He was evaluated by PT/OT- no weakness or dysarthria on my exam. patient and states he's as baseline. he was tolerating PO diet without any problems. his syncopal episode is unclear- less likely stroke given no deficit. ?TIA- maybe. vasovagal or orthastatic hypotension maybe. advised him to hydrate well. he's requesting discharge today. discussed about all results and he understands. advised him to get PCP and follow up in 1 week. states they go to urgent[facility]primary care [facility] and has appointment this week. i told them to follow up with Neurologist regarding hand tremors- he agrees. patient and family verbalized understanding. I explained that his admission was due to syncope not his tremors that has been going on for over a month- they understands Physical Exam Vital Signs: Temp Pulse Resp BP Pulse Ox 98.0 F 113 H 18 150/96 H 98 06/08/18 11:47 06/08/18 12:00 06/08/18 12:00 06/08/18 12:00 06/08/18 12:00 Intake & Output 06/07/18 06/08/18 06/09/18 06:59 06:59 06:59 Intake Total 1250 1475 Output Total 1150 600 Balance 100 875 Weight 239 lb 10.279 oz General appearance: PRESENT: no acute distress, obese, well-developed, well- nourished Head exam: PRESENT: atraumatic, normocephalic Eye exam: PRESENT: EOMI, PERRLA. ABSENT: scleral icterus Ear exam: PRESENT: normal external ear exam Mouth exam: PRESENT: tongue midline Neck exam: ABSENT: tracheal deviation Respiratory exam: PRESENT: clear to auscultation lashell, symmetrical Cardiovascular exam: PRESENT: +S1, +S2 Pulses: PRESENT: +2 pedal pulses bilateral GI/Abdominal exam: PRESENT: normal bowel sounds, soft. ABSENT: tenderness Extremities exam: ABSENT: joint swelling, pedal edema Neurological exam: PRESENT: alert, awake, oriented to person, oriented to place , oriented to time, oriented to situation, other - CN 2-12 intact, strength 5/5 bilaterally, sensation intact, finger to nose and heel to leija same as on day of admission.. ABSENT: ataxia Skin exam: PRESENT: dry, warm Results Laboratory Results: 06/08/18 05:30 06/08/18 05:30 06/08/18 06/08/18 05:30 05:30 WBC 8.1 RBC 4.61 Hgb 14.1 Hct 41.1 MCV 89 MCH 30.5 MCHC 34.2 RDW 14.8 H Plt Count 165 Sodium 136.4 L Potassium 3.9 Chloride 100 Carbon Dioxide 24 Anion Gap 12 BUN 20 Creatinine 0.96 Est GFR ( Amer) > 60 Est GFR (Non-Af Amer) > 60 Glucose 103 Calcium 9.8 Triglycerides 214 H Cholesterol 157.90 LDL Cholesterol Direct 85 VLDL Cholesterol 42.8 H HDL Cholesterol 44 06/07/18 06/07/18 18:18 23:36 Troponin I 0.013 0.015 Impressions: Head CT 06/07/18 15:07 IMPRESSION: Minimal chronic white matter change. Otherwise, noncontrast CT head. EVIDENCE OF ACUTE STROKE: NO. Chest X-Ray 06/07/18 15:08 IMPRESSION: NO SIGNIFICANT INTERVAL CHANGE. Carotid Doppler Study 06/08/18 00:00 IMPRESSION: NO HEMODYNAMICALLY SIGNIFICANT STENOSIS. Qualifiers - * PATIENT BEING DISCHARGED WITH ANY OF THE FOLLOWING DIAGNOSIS: No VTE patient discharged on overlapping Therapy?: No Plan Discharge Plan: follow up with pcp within 1 week follow up with neurologist regarding tremors Time Spent: Less than 30 Minutes
[2018-06-08 15:03] VITALS: BP 151/90
== END 2018-06-08 15:18 | disposition home or self-care (01) ==
LOC: ER 14:35 → EH 17:00 → 3S 21:16
PROVIDERS: ADMIT Family Medicine; ATTEND Family Medicine
PROC: 4B02XTZ Measurement of Cardiac Defibrillator, External Approach (ICD-10-PCS; principal; 2018-06-07)
DX: R55 Syncope and collapse (principal); I10 Essential (primary) hypertension; K21.9 Gastro-esophageal reflux disease without esophagitis; R42 Dizziness and giddiness; R11.2 Nausea with vomiting, unspecified; Z85.51 Personal history of malignant neoplasm of bladder; E11.9 Type 2 diabetes mellitus without complications; E66.9 Obesity, unspecified; J41.0 Simple chronic bronchitis; I25.10 Atherosclerotic heart disease of native coronary artery without angina pectoris; S40.022A Contusion of left upper arm, initial encounter; W18.09XA Striking against other object with subsequent fall, initial encounter; Y92.000 Kitchen of unspecified non-institutional (private) residence as the place of occurrence of the external cause; R51 Headache; G25.2 Other specified forms of tremor; L40.8 Other psoriasis; R53.1 Weakness; Z95.1 Presence of aortocoronary bypass graft; Z68.30 Body mass index [BMI] 30.0-30.9, adult; Z90.49 Acquired absence of other specified parts of digestive tract; Z87.891 Personal history of nicotine dependence; Z93.6 Other artificial openings of urinary tract status; Z90.79 Acquired absence of other genital organ(s); Z92.21 Personal history of antineoplastic chemotherapy; Z45.02 Encounter for adjustment and management of automatic implantable cardiac defibrillator
CPT/HCPCS: 93005 ×2; 99285; 96361; 96374; 36415 ×2; 82553; 82962 ×2; 82550; 85025; 85027; 80048; 80053; 84484; 83036; 80061; 93306; 93880; 71045; 70450; 93010 ×2; 97116; 97163; 93296; G0378 ×3; J1644 ×2; A9270 ×2; J3490 ×2; J2405; J7030; G8978; G8979; G8980

== ENCOUNTER 2018-07-01 15:45 | Emergency (ER) | payer MEDICARE, OTHER ==
--- NOTE | 2018-07-01 16:57 | ER Document Report ---
ED Medical Screen (RME) - General Chief Complaint: Altered Mental Status Stated Complaint: ALTERED MENTAL STATUS Time Seen by Provider: 07/01/18 16:38 Notes: RAPID MEDICAL EVALUATION DISCLOSURE I have seen this patient as part of a Rapid Medical Evaluation and, if applicable, placed any initially appropriate orders. The patient will be seen and fully evaluated, including a full history and physical exam, by a provider ( in Main ED or Fast Track) when a room becomes available. 58-year-old male here with who states that over the past 6 weeks he has had progressively worsening slurred speech, difficulty walking, balancing issues , confusion, short-term memory issues and that none of these symptoms are improving. She has also noticed that he has a facial droop however cannot tell me how long it has been there. reports they were seen here and he had a negative head CT. She then took him to [facility] where they performed another head CT which was reported to them is negative however they would not perform an MRI due to him having a defibrillator. The states that she has since called [employer] who has verified to her that his defibrillator, placed in 2016, is in fact MRI compatible. She is afraid he has the symptoms due to a stroke he sustained 6 weeks ago however "no one will perform an MRI". He denies having any pain at this time. EXAM Alert but disoriented Right facial droop Strength 5/5 with intact sensation all extremities TRAVEL OUTSIDE OF THE [place] IN LAST 30 DAYS: No - Related Data Allergies/Adverse Reactions: Penicillins Allergy (Verified 07/01/18 16:35) Past Medical History - Past Medical History Cardiac Medical History: Reports: Hx Hypercholesterolemia, Hx Hypertension Pulmonary Medical History: Reports: Hx COPD Endocrine Medical History: Reports: Hx Diabetes Mellitus Type 2 Renal/ Medical History: Denies: Hx Peritoneal Dialysis Psychiatric Medical History: Denies: Hx Depression Past Surgical History: Reports: Hx Cardiac Surgery - triple bypass, Hx Cholecystectomy, Hx Urinary Tract Surgery - bladder and prostate removal, urostomy - Immunizations History of Influenza Vaccine for 08/2017 - 01/2018 Season: Yes Influenza Administration Date for 08/2017 - 01/2018 Season: 08/04/17 Physical Exam - Vital signs Vitals: Temp Pulse Resp BP Pulse Ox 97.8 F 102 H 18 152/84 H 97 07/01/18 15:52 07/01/18 15:52 07/01/18 15:52 07/01/18 15:52 07/01/18 15:52 Course - Vital Signs Vital signs: Temp Pulse Resp BP Pulse Ox 97.8 F 102 H 18 152/84 H 97 07/01/18 15:52 07/01/18 15:52 07/01/18 15:52 07/01/18 15:52 07/01/18 15:52
[2018-07-01 17:28] LABS: ABSOLUTE EOSINOPHILS # (AUTO) 0.1 10^3/uL (0.0-0.6); ABSOLUTE LYMPHOCYTES (AUTO) 1.6 10^3/uL (0.5-4.7); ABSOLUTE NEUT (AUTO) 5.1 10^3/uL (1.7-8.2); BASOPHILS % (AUTO) 0.6 % (0-2); EOSINOPHILS % (AUTO) 1.4 % (0-6); HEMATOCRIT 44.7 % (37.9-51.0); HEMOGLOBIN 15.2 g/dL (13.5-17.0); LYMPHOCYTES % (AUTO) 20.4 % (13-45); MEAN CORPUSCULAR HEMOGLOBIN 30.8 pg (27.0-33.4); MEAN CORPUSCULAR VOLUME 91 fl (80-97); MONOCYTES % (AUTO) 12.7 % (3-13); PLATELET COUNT 211 10^3/uL (150-450); RED BLOOD COUNT 4.93 10^6/uL (4.35-5.55); RED CELL DISTRIBUTION WIDTH 14.7 % (11.5-14.0); SEGMENTED NEUTROPHILS % (AUTO) 64.9 % (42-78); TOTAL CELLS COUNTED % (AUTO) 100 %; WHITE BLOOD COUNT 7.9 10^3/uL (4.0-10.5)
--- NOTE | 2018-07-01 17:29 | RADIOLOGY REPORT (SQ) ---
EXAM DESCRIPTION: CHEST 2 VIEWS COMPLETED DATE/TIME: 07/01/2018 5:19 pm REASON FOR STUDY: AMS; eval pneumonia mass COMPARISON: 05/23/2018. EXAM PARAMETERS: NUMBER OF VIEWS: two views TECHNIQUE: Digital Frontal and Lateral radiographic views of the chest acquired. RADIATION DOSE: NA LIMITATIONS: none FINDINGS: LUNGS AND PLEURA: No opacities, masses or pneumothorax. No pleural effusion. MEDIASTINUM AND HILAR STRUCTURES: No masses or contour abnormalities. HEART AND VASCULAR STRUCTURES: Heart normal size. No evidence for failure. BONES: No acute findings. HARDWARE: Fibular. Sternotomy wires and surgical clips. OTHER: No other significant finding. IMPRESSION: NO ACUTE RADIOGRAPHIC FINDING IN THE CHEST. TECHNICAL DOCUMENTATION: JOB ID: [id number] [employer]- All Rights Reserved Reading location - IP/workstation name: [email or web address]
[2018-07-01 17:30] LABS: ALANINE AMINOTRANSFERASE 46 U/L (21-72); ALBUMIN 4.6 g/dL (3.5-5.0); ALKALINE PHOSPHATASE 70 U/L (38-126); ANION GAP 17 (5-19); ASPARTATE AMINO TRANSFERASE 65 U/L (17-59); BILIRUBIN,DIRECT 0.5 mg/dL (0.0-0.4); BILIRUBIN,TOTAL 0.7 mg/dL (0.2-1.3); BLOOD UREA NITROGEN 35 mg/dL (7-20); CARBON DIOXIDE 19 mmol/L (22-30); CHLORIDE 102 mmol/L (98-107); GLUCOSE 100 mg/dL (75-110); LIPASE 161.9 U/L (23-300); POTASSIUM 4.7 mmol/L (3.6-5.0); SODIUM 138.3 mmol/L (137-145); TOTAL PROTEIN 7.8 g/dL (6.3-8.2)
--- NOTE | 2018-07-01 17:31 | RADIOLOGY REPORT (SQ) ---
EXAM DESCRIPTION: L SPINE WHOLE COMPLETED DATE/TIME: 07/01/2018 5:19 pm REASON FOR STUDY: lower back pain COMPARISON: None. NUMBER OF VIEWS: Five views including obliques. TECHNIQUE: AP, lateral, oblique, and sacral radiographic images acquired of the lumbar spine. LIMITATIONS: None. FINDINGS: MINERALIZATION: Normal. SEGMENTATION: Normal. No transitional anatomy. ALIGNMENT: Mild levoscoliosis. VERTEBRAE: Maintained height. No fracture or worrisome bone lesion. DISCS: Disc spaces are narrowed from L3-S1. POSTERIOR ELEMENTS: Hypertrophic facet changes at L5-S1. HARDWARE: None in the spine. PARASPINAL SOFT TISSUES: Normal. PELVIS: Intact as visualized. No fractures or worrisome bone lesions. SI joints intact. OTHER: No other significant finding. IMPRESSION: Mild scoliosis. Degenerative disc disease. Facet arthropathy. TECHNICAL DOCUMENTATION: JOB ID: [id number] [employer]- All Rights Reserved Reading location - IP/workstation name: [email or web address]
[2018-07-01 19:16] LABS: APPEARANCE,URINE CLOUDY; BILIRUBIN,URINE NEGATIVE (NEGATIVE); COLOR,URINE YELLOW; GLUCOSE, URINE NEGATIVE (NEGATIVE); KETONES,URINE NEGATIVE (NEGATIVE); LEUKOCYTE ESTERASE,URINE MODERATE (NEGATIVE); NITRITE,URINE NEGATIVE (NEGATIVE); PROTEIN,URINE NEGATIVE (NEGATIVE); URINE SPECIFIC GRAVITY 1.015; UROBILINOGEN,URINE NEGATIVE mg/dL (<2.0)
[2018-07-01] MEDS ORDERED: NORMAL SALINE 1000 ML 500 ML IV ONE (19:40)
--- NOTE | 2018-07-01 19:43 | ER Document Report ---
ED General - General Chief Complaint: Altered Mental Status Stated Complaint: ALTERED MENTAL STATUS Time Seen by Provider: 07/01/18 16:38 Notes: Patient is a 58-year-old male with chief complaint of confusion and instability with gait, and son state that for the past 24 hours patient has had more staggering and he keeps falling to the right. They state that over the past 2 weeks or so he has had decline including left-sided facial droop and confusion, he had a CAT scan of the head that was negative and they state he was they were told he had "TIA". They state patient has started eating less over the past 2- 3 days as well and is having more difficulty getting up. No fevers. No vomiting. No headache. Past medical history includes CABG, COPD, type 2 diabetes, paroxysmal A. fib (aspirin), psoriasis, hypertension, hyperlipidemia, [employer] defibrillator, and bladder removal with urostomy bag in place. TRAVEL OUTSIDE OF THE [place] IN LAST 30 DAYS: No - Related Data Allergies/Adverse Reactions: Penicillins Allergy (Verified 07/01/18 16:35) Past Medical History - General Information source: Patient, Relative - Social History Smoking Status: Former Smoker Chew tobacco use (# tins/day): Yes Frequency of alcohol use: None Drug Abuse: None Lives with: Family Family History: Reviewed & Not Pertinent Patient has suicidal ideation: No Patient has homicidal ideation: No - Past Medical History Cardiac Medical History: Reports: Hx Atrial Fibrillation, Hx Heart Attack, Hx Hypercholesterolemia, Hx Hypertension Pulmonary Medical History: Reports: Hx COPD Endocrine Medical History: Reports: Hx Diabetes Mellitus Type 2 Renal/ Medical History: Denies: Hx Peritoneal Dialysis GI Medical History: Reports: Hx Gastroesophageal Reflux Disease Psychiatric Medical History: Denies: Hx Depression Past Surgical History: Reports: Hx Cardiac Surgery - triple bypass, Hx Cholecystectomy, Hx Genitourinary Surgery - bladder, Hx Open Heart Surgery, Hx Urinary Tract Surgery - bladder and prostate removal, urostomy Review of Systems - Review of Systems Constitutional: No symptoms reported EENT: No symptoms reported Cardiovascular: No symptoms reported Respiratory: No symptoms reported Gastrointestinal: No symptoms reported Genitourinary: No symptoms reported Male Genitourinary: No symptoms reported Musculoskeletal: No symptoms reported Skin: No symptoms reported Hematologic/Lymphatic: No symptoms reported Neurological/Psychological: See HPI Physical Exam - Vital signs Vitals: Temp Pulse Resp BP Pulse Ox 97.8 F 102 H 18 152/84 H 97 07/01/18 15:52 07/01/18 15:52 07/01/18 15:52 07/01/18 15:52 07/01/18 15:52 - Notes Notes: GENERAL: Alert, interacts well. No acute distress. HEAD: Normocephalic, atraumatic. EYES: Pupils equal, round, and reactive to light. Extraocular movements intact. ENT: Oral mucosa moist, tongue midline. [Nares patent, no nasal septal hematoma , TM's intact.] NECK: Full range of motion. Supple. Trachea midline. LUNGS: Clear to auscultation bilaterally, no wheezes, rales, or rhonchi. No respiratory distress. HEART: Borderline tachycardia, no murmur. ABDOMEN: Soft, non-tender. Non-distended. Bowel sounds present in all 4 quadrants. Urostomy tube in place in the lower abdomen. EXTREMITIES: Moves all 4 extremities spontaneously. No edema, normal radial and dorsalis pedis pulses bilaterally. No cyanosis. BACK: no cervical, thoracic, lumbar midline tenderness. No saddle anesthesia, normal distal neurovascular exam. NEUROLOGICAL: Occasional slurring of words, alert and cooperative but not oriented to events or time. Ambulates with significant ataxia and instability, has to be stabilized and assisted. [cranial nerves II through XII grossly intact]. PSYCH: Normal affect, normal mood. SKIN: Warm, dry, normal turgor. No rashes or lesions noted. Course - Re-evaluation Re-evalutation: Patient slurring some words, intermittently confused and bizarre, staggers when walking although does not specifically fall to the right on my exam. This is all new per family (gait abnormality, level of altered mental status). He does not have focal neurological deficits otherwise on examination. He is mildly tachycardic, no fever, no hypotension. Missed his evening dose of Lopressor. CBC unremarkable. Chemistry shows bicarbonate 19, slightly elevated creatinine at 1.3, given 500 cc bolus. Troponin is not elevated. Ammonia and TSH unremarkable. Chest x-ray unremarkable. EKG with no significant change from prior. CAT scan of the head without acute abnormality. Urinalysis indicates infection but this was taken from his urostomy bag. Covered with Rocephin, culture placed. No fever, hypotension, abdominal pain, flank pain, vomiting. Urine drug screen shows marijuana, patient states he has smoked this for many years, he denies alcohol, alcohol is negative. Family confirms these statements. Obtained patient's [employer] information, called die maintenance technician, they state that they will be able to MRI his brain. Called and spoke with hospitalist, patient will be accepted for altered mental status with plans to MRI the patient. die maintenance technician called back, she states that she spoke with her supervisor furnace room and the supervisor furnace room has clarified that we are unable to perform the MRI, we do not have the monitoring equipment or ability to perform the scan at any time in this facility. I called and spoke with him personally and this was confirmed. Called and spoke with hospitalist again, spoke with family, concern because of inability to MRI the patient with his worsening symptoms over the past day. Recommends transfer to [facility], family is now requesting this specifically. Discussed with Dr. Huffman. 07/02/18 22:[address] Llanos, hospitalist at [facility]. No beds available at this moment, hopefully in the morning. Accepted for transfer. Discussed this with family and patient, they state that they are fine with this. They specifically want to go to [place]. Pending transfer to [place] for additional evaluation. Patient reevaluated, he is complaining that he needs to get up to urinate, reminded him that he has a urostomy bag, patient flustered by this but states agreement and that he knew this. No significant change in his evaluation otherwise. Given his nighttime medications including his Lopressor. Afterwards he fell asleep. 07/02/18 03:45 Patient sleeping soundly, heart rate 84, pulse oxygenation 94% on room air, no hypotension. 07/02/18 07:12 Introduced to Nirav gallagher PA-C at bedside, patient with no current complaints. - Vital Signs Vital signs: Temp Pulse Resp BP Pulse Ox 97.8 F 102 H 24 H 161/85 H 97 07/01/18 15:52 07/01/18 15:52 07/02/18 06:00 07/02/18 04:23 07/02/18 04:23 - Laboratory Result Diagrams: 07/01/18 15:25 07/01/18 15:25 Laboratory results interpreted by me: 07/01/18 07/01/18 07/01/18 15:25 15:25 17:34 RDW 14.7 H Carbon Dioxide 19 L BUN 35 H Creatinine 1.37 H Est GFR (Non-Af Amer) 53 L Direct Bilirubin 0.5 H AST 65 H Ammonia < 8.7 L Urine Blood Ur Leukocyte Esterase 07/01/18 18:54 RDW Carbon Dioxide BUN Creatinine Est GFR (Non-Af Amer) Direct Bilirubin AST Ammonia Urine Blood SMALL H Ur Leukocyte Esterase MODERATE H Discharge - Discharge Clinical Impression: Ataxia, Confusion, Acute renal insufficiency Altered mental status Qualifiers: Altered mental status type: unspecified Qualified Code(s): R41.82 - Altered mental status, unspecified Condition: Stable Disposition: [facility]
[2018-07-01 20:07] LABS: URINE AMPHETAMINES SCREEN NEGATIVE; URINE BARBITURATES SCREEN NEGATIVE; URINE BENZODIAZEPINES SCREEN NEGATIVE; URINE COCAINE SCREEN NEGATIVE; URINE MARIJUANA (THC) SCREEN UNCONFIRMED POSITIVE; URINE METHADONE SCREEN NEGATIVE; URINE PHENCYCLIDINE SCREEN NEGATIVE
--- NOTE | 2018-07-01 20:26 | RADIOLOGY REPORT (SQ) ---
EXAM DESCRIPTION: CT HEAD WITHOUT COMPLETED DATE/TIME: 07/01/2018 8:14 pm REASON FOR STUDY: confusion, ataxia COMPARISON: 06/07/2018 TECHNIQUE: Axial images acquired through the brain without intravenous contrast. Images reviewed wi th bone, brain and subdural windows. Additional sagittal and coronal reconstructions were generated. Images stored on PACS. All CT scanners at this facility use dose modulation, iterative reconstruction, and/or weight based d osing when appropriate to reduce radiation dose to as low as reasonably achievable (ALARA). [facility]: Dose Right [facility]: CareDose [facility]: Dose Right [facility]: Teradose 4D [facility]: Smart Total Prestige RADIATION DOSE: CT Rad equipment meets quality standard of care and radiation dose reduction techniq ues were employed. CTDIvol: 53.2 mGy. DLP: 1124 mGy-cm. mGy. LIMITATIONS: None. FINDINGS: VENTRICLES: Normal size and contour. CEREBRUM: No masses. No hemorrhage. No midline shift. No evidence for acute infarction. Normal gra y/white matter differentiation. No areas of low density in the white matter. CEREBELLUM: No masses. No hemorrhage. No alteration of density. No evidence for acute infarction. EXTRAAXIAL SPACES: No fluid collections. No masses. ORBITS AND GLOBE: No intra- or extraconal masses. Normal contour of globe without masses. CALVARIUM: No fracture. PARANASAL SINUSES: No fluid or mucosal thickening. SOFT TISSUES: No mass or hematoma. OTHER: No other significant finding. IMPRESSION: NORMAL BRAIN CT WITHOUT CONTRAST. EVIDENCE OF ACUTE STROKE: NO. COMMENT: Quality ID # [id number]: Final reports with documentation of one or more dose reduction techniques (e.g., Automated exposure control, adjustment of the mA and/or kV according to patient size, use of iterative reconstruction technique) TECHNICAL DOCUMENTATION: JOB ID: [id number] [employer]- All Rights Reserved Reading location - IP/workstation name: [email or web address]
[2018-07-01] MEDS ORDERED: CEFTRIAXONE INJ 1000 MG VIAL IV ONE (20:57)
[2018-07-02] MEDS ORDERED: METOPROLOL TARTRATE 25 MG TABLET PO ONE (01:30)
[2018-07-02] MEDS ORDERED: ATORVASTATIN CALCIUM 40 MG TABLET PO ONE (01:30)
[2018-07-02] MEDS ORDERED: METOPROLOL TARTRATE 25 MG TABLET PO SCH (01:30)
[2018-07-02] MEDS ORDERED: ATORVASTATIN CALCIUM 40 MG TABLET PO SCH ×2 (01:30→22:00)
[2018-07-02] MEDS ORDERED: LORAZEPAM 1 MG TABLET PO ONE (05:11)
[2018-07-02] MEDS: LISINOPRIL 5 MG TABLET PO SCH (09:41)
[2018-07-02] MEDS: METOPROLOL TARTRATE 25 MG TABLET PO SCH (09:42)
[2018-07-02] MEDS ORDERED: CEFTRIAXONE 1 GM/D5W RTU 50 ML IV ONE (17:58)
[2018-07-02] MEDS ORDERED: LISINOPRIL 5 MG TABLET PO ONE (18:40)
[2018-07-02 19:21] LABS: ANION GAP 15 (5-19); BLOOD UREA NITROGEN 33 mg/dL (7-20); CALCIUM 10.2 mg/dL (8.4-10.2); CARBON DIOXIDE 23 mmol/L (22-30); CHLORIDE 100 mmol/L (98-107); GLUCOSE 194 mg/dL (75-110); POTASSIUM 4.3 mmol/L (3.6-5.0); SODIUM 137.6 mmol/L (137-145)
[2018-07-02] MEDS ORDERED: CEFTRIAXONE SODIUM 1,000 MG in DEXTROSE 5%-WATER 50 ML IV ONE (19:30)
[2018-07-02] MEDS ORDERED: CEFTRIAXONE INJ 1000 MG VIAL ONE (19:35)
[2018-07-03] MEDS: METOPROLOL TARTRATE 25 MG TABLET PO SCH ×2 (02:42→11:13)
[2018-07-03] MEDS ORDERED: LORAZEPAM INJ 2 MG/1 ML VIAL IV ONE (02:48)
[2018-07-03] MEDS ORDERED: LORAZEPAM 1 MG TABLET PO ONE (02:49)
[2018-07-03] MEDS ORDERED: CEFTRIAXONE 1 GM/D5W RTU 50 ML IV ONE (08:36)
[2018-07-03] MEDS ORDERED: CEPHALEXIN 500 MG CAPSULE PO ONE (08:37)
[2018-07-03] MEDS: LISINOPRIL 5 MG TABLET PO SCH (10:00)
[2018-07-03 11:07] VITALS: BP 145/94
--- NOTE | 2018-07-03 16:11 | ER Document Report ---
Doctor's Note Notes: 07/03/18 Patient seen and assessed prior to transfer, is sitting up in bed, no complaints , eating a food tray. Patient is stable from my standpoint for transfer to [facility].
== END 2018-07-03 11:41 | disposition short-term general hospital (02) ==
LOC: ER 15:45
DX: R41.0 Disorientation, unspecified (principal); R27.0 Ataxia, unspecified; R47.81 Slurred speech; R29.810 Facial weakness; N28.9 Disorder of kidney and ureter, unspecified; R00.0 Tachycardia, unspecified; J44.9 Chronic obstructive pulmonary disease, unspecified; E11.9 Type 2 diabetes mellitus without complications; I25.2 Old myocardial infarction; I10 Essential (primary) hypertension; I48.0 Paroxysmal atrial fibrillation; Z79.82 Long term (current) use of aspirin; Z95.1 Presence of aortocoronary bypass graft; Z95.810 Presence of automatic (implantable) cardiac defibrillator; Z88.0 Allergy status to penicillin; Z93.6 Other artificial openings of urinary tract status; Z90.6 Acquired absence of other parts of urinary tract; Z87.891 Personal history of nicotine dependence; Z79.899 Other long term (current) drug therapy
CPT/HCPCS: 99285; 96361; 96365; 36415; 87040; 87086; 80307 ×2; 82140; 83690; 83735; 84100; 84443; 85025; 87088; 80048; 80053; 81001; 84484; 87186; 71046; 72110; 70450; A9270 ×6; J0696 ×2; J7030